=== PATIENT | female | born 1965 | race Caucasian/White ===

== ENCOUNTER 2020-08-22 16:15 | Outpatient (CLI) | payer OTHER, SELFPAY ==
--- NOTE | ~2020-08-22 | MM_ITS ---
EXAMINATION: MM screening ed BI w omari HISTORY: Screening mammogram TECHNIQUE: Craniocaudal and mediolateral oblique 3-D tomosynthesis images were obtained and synthetic 2-D images were generated. CAD analysis was submitted and interpreted. COMPARISON: 06/28/2019, 05/12/2018, 04/23/2017, 04/10/2016, 03/15/2015, 12/12/2013 bilateral digital scre ening mammogram examinations BREAST PARENCHYMAL COMPOSITION: The breasts are heterogeneously dense, which may obscure small masses . FINDINGS: There is no evidence of suspicious mass, calcification, or architectural distortion to sugg est malignancy in either breast. There has been no suspicious interval change. IMPRESSION: 1. No mammographic evidence of malignancy. 2. Recommend routine screening mammography in one year. BI-RADS Category 1: Negative Reviewed, dictated and finalized at location A. ERIBS TRIMMER
== END 2020-08-22 16:16 | disposition home or self-care (01) ==
LOC: ANHIMG 16:18
PROVIDERS: PCP Family Medicine; Visit Provider Advanced Practice Midwife
DX: Z12.31 Encounter for screening mammogram for malignant neoplasm of breast (principal)
CPT/HCPCS: 77063; 77067

== ENCOUNTER → 2020-12-10 15:27 | Outpatient (CLI) | payer OTHER, SELFPAY ==
--- NOTE | ~2020-12-10 | US_ITS ---
EXAMINATION: US soft tissue UE RT DATE: 12/10/2020 15:46 INDICATION: Right upper limb lump. TECHNIQUE: Multiple grayscale and Doppler ultrasound images of the right upper limb were obtained. COMPARISON: None FINDINGS: There is no abnormal mass in the patient's area of concern anteromedial to the elbow. IMPRESSION: 1. No abnormal mass in the patient's area of concern anteromedial to the elbow. Reviewed, dictated and finalized at location A.
== END ==
PROVIDERS: PCP Family Medicine; Visit Provider Physician Assistant
DX: R22.30 Localized swelling, mass and lump, unspecified upper limb (principal)
CPT/HCPCS: 76882

== ENCOUNTER → 2021-06-24 15:34 | Outpatient (CLI) | payer OTHER, SELFPAY ==
--- NOTE | ~2021-06-24 | XR_ITS ---
EXAMINATION: XR hand LT min 3V DATE: 06/24/2021 15:51 INDICATION: Pain in unspecified hand. Pain at base of left thumb. TECHNIQUE: 3 views of left hand were obtained. COMPARISON: None. FINDINGS: Bone alignment is normal. No fracture. There is mild osteoarthritis of triscaphe joint and first carpometacarpal joint. There is mild osteoarthritis of most of the interphalangeal joints. Ther e is moderate osteoarthritis of fifth distal interphalangeal joint. IMPRESSION: 1. Polyarticular osteoarthritis. Reviewed, dictated and finalized at location B. WRAPPER
== END ==
PROVIDERS: PCP Physician Assistant; Visit Provider Physician Assistant
DX: M79.642 Pain in left hand (principal); M19.042 Primary osteoarthritis, left hand
CPT/HCPCS: 73130

== ENCOUNTER 2021-11-06 07:48 | Outpatient (CLI) | payer OTHER, SELFPAY ==
--- NOTE | ~2021-11-06 | DEXA_ITS ---
Bone Density Report Name: MARLON PEREZ Age: 56 Sex: Female Ethnicity: White Date of : 1965 Indication: postmenopausal; screening for osteoporosis; Referring Provider: WANDA MONTES DE OCA Study: Bone densitometry was performed. Exam Date: November 06, 2021 Accession number: [id number] Bone Density: Region BMD T-score Z-score Classification AP Spine(L1-L4) 1.072 0.2 1.2 Normal Femoral Neck (Left) 0.866 0.2 1.2 Normal Total Hip (Left) 0.987 0.4 1.0 Normal Femoral Neck (Right) 0.853 0.0 1.0 Normal Total Hip (Right) 1.016 0.6 1.2 Normal Total Hip Mean 1.002 0.5 1.1 Normal World Health Organization criteria for BMD impression classify patients as: Normal (T-score at or above -1.0), Osteopenia (T-score between -1.0 and -2.5), or Osteoporosis (T-score at or below -2.5). 10-year Fracture Risk: FRAX not reported because: All T-scores for Spine Total, Hip Total, Femoral Neck at or above -1.0 Clinical Information Provided by Patient: Patient maximum height was 67 Menopause Age: 56 Drinks caffeinated beverages Onset of menses at age 14 Number of children 1 Impression: The patient has normal bone mass. Discussion: BONE DENSITY IS ABOVE THE MINIMUM DESIRABLE LEVEL AT ALL SKELETAL SITES TESTED. This patient?s bone mineral density is above the minimum desirable level (T-score -1.0 or better) at all sites measured. The patient should follow a healthful lifestyle (good nutrition with adequate calcium and vitamin D, and appropriate weight-bearing exercise). Follow-Up: Consider repeating this study in 5 years or sooner if there is some new clinical indication. Reported by: WADE on 11/06/2021 8:42:00 AM. Reviewed, dictated and finalized at location AGaro GUAMAN
--- NOTE | ~2021-11-06 | MM_ITS ---
EXAMINATION: MM screening ed BI w omari HISTORY: Screening mammogram TECHNIQUE: Craniocaudal and mediolateral oblique 3-D tomosynthesis images were obtained and synthetic 2-D images were generated. CAD analysis was submitted and interpreted. COMPARISON: 08/22/2020, 06/28/2019, 05/12/2018, 04/23/2017 bilateral screening mammogram examinations 05/06/2017 diagnostic left mammogram BREAST PARENCHYMAL COMPOSITION: The breasts are heterogeneously dense, which may obscure small masses . FINDINGS: There is stable asymmetry in the upper outer left breast since 04/23/2017. No suspicious mass or interval architectural distortion, malignant calcification, skin thickening or retraction or significant new or developing density is detected. IMPRESSION: 1. Stable asymmetry, upper outer left breast, since 04/23/2017 2. Recommend routine screening mammography in one year. BI-RADS Category 2: Benign finding(s). Reviewed, dictated and finalized at location A.
== END 2021-11-06 07:49 | disposition home or self-care (01) ==
PROVIDERS: PCP Family Medicine; Visit Provider Obstetrics & Gynecology
DX: Z12.31 Encounter for screening mammogram for malignant neoplasm of breast (principal); Z78.0 Asymptomatic menopausal state
CPT/HCPCS: 77063; 77067; 77080

== ENCOUNTER 2022-05-01 11:58 | Emergency (ER) | payer OTHER, SELFPAY ==
[2022-05-01 12:14] VITALS: BP 121/73; PULSE 80; RESP 18; TEMP 36.5; O2SAT 100
--- NOTE | 2022-05-01 13:04 | ED.URI ---
HPI - URI/Sore Throat General Chief Complaint: Upper Respiratory Infection Stated Complaint: Congestion,Headache Time Seen by Provider: 05/01/22 13:04 Source: patient Mode of arrival: ambulatory Limitations: no limitations History of Present Illness HPI Narrative: 56-year-old female presents with complaint of nasal congestion for approximately 10 days. Today she states she woke up and congestion is worse with sore throat, postnasal drainage and left ear pain. Reports sinus pressure worse to left side. Afebrile. Complaining of fatigue. Concerned that she has a sinus infection. Has not been taking any wsya-fyy-butnoje medications to treat her symptoms. All systems reviewed and negative except as noted above. Related Data Home Medications Medication Instructions Recorded Confirmed hydrochlorothiazide 12.5 mg tablet 12.5 mg PO DAILY 05/01/22 05/01/22 Allergies Allergy/AdvReac Type Severity Reaction Status Date / Time ciprofloxacin [From Cipro] Allergy Severe Dizziness, Verified 05/01/22 12:32 nausea Review of Systems Review of Systems: CONSTITUTIONAL: Denies fever, chills, or sweats. Reports fatigue. EYES: Denies visual changes, redness, or discharge. ENT: Reports rhinorrhea, congestion, sore throat and left ear pain. CARDIOVASCULAR: Denies chest pain, palpitations, or edema. RESPIRATORY: Denies cough or dyspnea. GASTROINTESTINAL: Denies abdominal pain, nausea, vomiting, or diarrhea. GENITOURINARY: Denies dysuria or hematuria. SKIN: Denies rash or itching. MUSCULOSKELETAL: Denies back pain, joint pain, or myalgia. NEUROLOGIC: Denies headache, numbness, or weakness. PSYCHIATRIC: Denies anxiety or depression. All other systems reviewed are negative, except as documented in HPI. [facility]LY [facility] Past Medical History Medical History Generalized abdominal pain Goiter HLD (hyperlipidemia) HTN (hypertension) Hypothyroidism Pain of right hip joint SK (seborrheic keratosis) Surgical History Surgical History History of tonsillectomy (~1988) Hx of cholecystectomy (~1999) Family History Family History Mother Hypertension, Onset Age: 60 Family history of cardiovascular disease, Onset Age: 60 Mother of heart-related issues and apparently several other medical problems. Cerebrovascular accident, Onset Age: 60 Family history of type 1 diabetes mellitus Family history of thyroid disease Family history of diabetes mellitus in first degree relative Family history of congestive heart failure Father Family history of cardiovascular disease Father had a coronary stent in his 60s Cerebrovascular accident, Onset Age: 75 Family history of congestive heart failure Other Diabetes mellitus Social History Social History Social History: Patient is and lives in [place]. 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 Smoking status: Never smoker Second hand tobacco smoke exposure: No Alcohol intake: never Substance use: never Substance use type: does not use Gender identity (if verbalized by the patient): Female Comments At time of signature, agree with nursing past medical, surgical, social and family history. There is no relevant family history pertinent to the presenting complaint. Exam Narrative: GENERAL: This is a well-nourished, well-developed patient, in no apparent distress. HEAD: normocephalic, atraumatic. EYES: PERRL. Sclera clear/white. Vision is grossly intact. EARS: External ears normal, auditory canals clear and without drainage, Left TM is erythematous, fluid, bulging without perforation. Right TM is normal. NOSE: External nose normal with no obvious nasal discharge, nares without redness, no rhinorrhea. no sinus tenderness
== END 2022-05-01 13:12 | disposition home or self-care (01) ==
PROVIDERS: Emergency Provider Nurse Practitioner Family; PCP Family Medicine
DX: J01.90 Acute sinusitis, unspecified (principal); H65.02 Acute serous otitis media, left ear; E78.5 Hyperlipidemia, unspecified; I10 Essential (primary) hypertension; E03.9 Hypothyroidism, unspecified; E04.9 Nontoxic goiter, unspecified
CPT/HCPCS: 99213; G0463

== ENCOUNTER 2023-03-18 00:25 | Day surgery (SDC) | payer OTHER, SELFPAY ==
[2023-03-10 10:44] VITALS: BMI 27.6
--- NOTE | 2023-03-17 13:21 | PM.HPGS ---
History of Present Illness History of Present Illness Consent: Risks, benefits, and alternatives have been discussed and questions answered. Patient agrees to proceed with procedure. Chief complaint: neoplasm screening Narrative: Constanza Pate is a 57 year old female referred for colon cancer screening. She had a polyp removed about 5 years ago. Review of Systems Review of Systems: All systems reviewed & are unremarkable except as noted in HPI and below PMFSH Past Medical History Medical History Generalized abdominal pain Goiter HLD (hyperlipidemia) HTN (hypertension) Hypothyroidism Pain of right hip joint SK (seborrheic keratosis) Surgical History Surgical History History of tonsillectomy (~1988) Hx of cholecystectomy (~1999) Family History Family History Mother Hypertension, Onset Age: 60 Family history of cardiovascular disease, Onset Age: 60 Mother of heart-related issues and apparently several other medical problems. Cerebrovascular accident, Onset Age: 60 Family history of type 1 diabetes mellitus Family history of thyroid disease Family history of diabetes mellitus in first degree relative Family history of congestive heart failure Father Family history of cardiovascular disease Father had a coronary stent in his 60s Cerebrovascular accident, Onset Age: 75 Family history of congestive heart failure Other Diabetes mellitus Social History Social History Social History: Patient is and lives in [place]. 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 Smoking status: Never smoker Second hand tobacco smoke exposure: No Alcohol intake: never Substance use: never Substance use type: does not use Lack of Transportation: No Lack of Food: Never True Current Housing: I Have Housing Concerned About Future Housing: No Difficulty Paying Gas/Electric Bills: No Difficulty Paying for Meds: No Currently Unemployed: No Education: Bachelor's Degree Difficulty w/ Childcare or Family Care: No Living arrangements: with family Occupation/Education: occupation Gender identity (if verbalized by the patient): Female Spiritual care concerns: No Agree to blood products: Yes Meds Home Medications and Allergies Home Medications Medication Instructions Recorded Confirmed Type levothyroxine 125 mcg tablet 125 mcg PO DAILY #90 tabs 11/13/22 03/11/23 Rx hydrochlorothiazide 12.5 mg tablet 12.5 mg PO DAILY #90 tabs 12/11/22 03/11/23 Rx Allergies Allergy/AdvReac Type Severity Reaction Status Date / Time ciprofloxacin [From Cipro] Allergy Severe Dizziness, Verified 03/18/23 07:17 nausea Exam Const: General: alert Orientation/consciousness: patient oriented x3 Resp: Auscultation: clear to auscultation bilaterally Cardio: Rhythm: regular rhythm GI: GI Palp: Yes Soft to palpation and No Tenderness to palpation present (GI) Neuro: General: patient oriented x3 Assessment and Plan Assessment and plan (1) Colon cancer screening: Code(s): Z12.11 - Encounter for screening for malignant neoplasm of colon Status: Acute Assessment and Plan: Colonoscopy with possible biopsy or polypectomy or cautery or injection of substances.
[2023-03-18 07:18] VITALS: BP 111/71; PULSE 60; RESP 20; TEMP 36.3; O2SAT 99
[2023-03-18] MEDS: LACTATED RINGERS 1,000 ML 150 ML IV CONT (07:32)
--- NOTE | 2023-03-18 08:03 | WPDANESEPPF ---
Anes - Initial Pre Proc Eval Procedure: Operation Date: 03/18/23 08:30 Proposed Procedures p Screening Colonoscopy - Gilberto Smith MD Date/Time: 03/18/23 08:03 Surgeon: Gilberto Smith MD Pre Op Diagnosis: neoplasm screening Patient Data Age: 57 Gender: F Height: 1.68 m Weight: 77.1 kg Last Vital Signs Temp 97.3 F L 03/18/23 07:18 Pulse 60 03/18/23 07:18 Resp 20 03/18/23 07:18 BP 111/71 03/18/23 07:18 Pulse Ox 99 03/18/23 07:18 O2 Del Method Room Air 03/18/23 07:18 Allergies Allergy/AdvReac Type Severity Reaction Status Date / Time ciprofloxacin [From Cipro] Allergy Severe Dizziness, Verified 03/18/23 07:17 nausea Home Medications Medication Instructions Recorded Confirmed Type levothyroxine 125 mcg tablet 125 mcg PO DAILY #90 tabs 11/13/22 03/11/23 Rx hydrochlorothiazide 12.5 mg tablet 12.5 mg PO DAILY #90 tabs 12/11/22 03/11/23 Rx Patient hx anesthesia problems: none Family hx anesthesia problems: none Results Review: All pre-operative results and documents have been reviewed as part of the pre-operative evaluation. COUNT INCLUDES THE [facility] Past Medical History Medical History Generalized abdominal pain Goiter HLD (hyperlipidemia) HTN (hypertension) Hypothyroidism Pain of right hip joint SK (seborrheic keratosis) Surgical History Surgical History History of tonsillectomy (~1988) Hx of cholecystectomy (~1999) Family History Family History Mother Hypertension, Onset Age: 60 Family history of cardiovascular disease, Onset Age: 60 Mother of heart-related issues and apparently several other medical problems. Cerebrovascular accident, Onset Age: 60 Family history of type 1 diabetes mellitus Family history of thyroid disease Family history of diabetes mellitus in first degree relative Family history of congestive heart failure Father Family history of cardiovascular disease Father had a coronary stent in his 60s Cerebrovascular accident, Onset Age: 75 Family history of congestive heart failure Other Diabetes mellitus Social History Social History Social History: Patient is and lives in [place]. 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 status: Never smoker Second hand tobacco smoke exposure: No Alcohol intake: never Substance use: never Substance use type: does not use Lack of Transportation: No Lack of Food: Never True Current Housing: I Have Housing Concerned About Future Housing: No Difficulty Paying Gas/Electric Bills: No Difficulty Paying for Meds: No Currently Unemployed: No Education: Bachelor's Degree Difficulty w/ Childcare or Family Care: No Living arrangements: with family Occupation/Education: occupation Gender identity (if verbalized by the patient): Female Spiritual care concerns: No Agree to blood products: Yes Anes - Eval Final PreProcedure Day of Procedure 03/18/23 08:03 Patient weight: normal Heart: regular rate and rhythm Lungs: clear to auscultation Airway: Mallampati scale class II Neurological: alert and oriented Last oral intake: >/= 8 hours ASA classification: II Emergent: no Anesthetic plan: proceed Anesthesia type and monitoring: general GIVS and standard monitoring Results Review: All pre-operative results and documents have been reviewed as part of the pre-operative evaluation. Informed Consent: The patient's anesthetic plan and its attendant risks and benefits were discussed with the patient/family/POA. Questions were solicited and answers provided to the satisfaction of the patient/family/POA.
[2023-03-18 08:38] VITALS: BP 105/63; PULSE 68; RESP 20; O2SAT 99
[2023-03-18 08:48] VITALS: BP 120/77; PULSE 60; RESP 20; O2SAT 100
[2023-03-18 08:54] VITALS: BP 122/80; PULSE 60; RESP 20; O2SAT 100
== END 2023-03-18 09:05 | disposition home or self-care (01) ==
PROVIDERS: PCP Family Medicine; Visit Provider Internal Medicine Gastroenterology
PROC: 0DJD8ZZ Inspection of Lower Intestinal Tract, Via Natural or Artificial Opening Endoscopic (ICD-10-PCS; CPT 45378; principal; 2023-03-18 08:30)
DX: Z12.11 Encounter for screening for malignant neoplasm of colon (principal); Z86.010 Personal history of colon polyps; I10 Essential (primary) hypertension; E03.9 Hypothyroidism, unspecified
CPT/HCPCS: 45378; J2704; J7120

== ENCOUNTER 2023-03-20 09:05 | Outpatient (CLI) | payer OTHER, SELFPAY ==
--- NOTE | ~2023-03-20 | MM_ITS ---
EXAMINATION: MM screening [facility] BI w omari HISTORY: Screening mammogram TECHNIQUE: Craniocaudal and mediolateral oblique 3-D tomosynthesis images were obtained and synthetic 2-D images were generated. CAD analysis was submitted and interpreted. COMPARISON: 11/06/2021, 08/22/2020, 06/28/2019 BREAST PARENCHYMAL COMPOSITION: The breasts are heterogeneously dense, which may obscure small masses . FINDINGS: No suspicious mass, calcification, or architectural distortion are identified in either aliya ast to suggest malignancy. There has been no suspicious interval change. IMPRESSION: 1. No mammographic evidence of malignancy. 2. Recommend routine screening mammography in one year. BI-RADS Category 1: Negative Reviewed, dictated and finalized at location A.
== END 2023-03-20 09:06 | disposition home or self-care (01) ==
PROVIDERS: PCP Family Medicine; Visit Provider Advanced Practice Midwife
DX: Z12.31 Encounter for screening mammogram for malignant neoplasm of breast (principal)
CPT/HCPCS: 77063; 77067

== ENCOUNTER → 2023-05-20 10:26 | Outpatient (CLI) | payer OTHER, SELFPAY ==
--- NOTE | ~2023-05-20 | XR_ITS ---
XR abdomen/kub 1V 05/20/2023 10:50 INDICATION: Unspecified abdominal pain TECHNIQUE: KUB COMPARISON: None FINDINGS: Bowel gas pattern is normal. There are cholecystectomy clips. There is no evidence of free air, mass, organomegaly, ascites or obstruction. No abnormal calculi are seen. The bones appear int act. Calcifications in the pelvis are believed to be phleboliths. IMPRESSION: 1: No acute abdominal abnormality identified. Reviewed, dictated and finalized at location B. NEL LIP WETTER
--- NOTE | ~2023-05-20 | XR_ITS ---
Lumbosacral Spine: AP and lateral views Clinical History: Pain Findings: The normal lordotic curve is maintained. The vertebral bodies and posterior elements are i ntact. The intervertebral disc spaces are preserved. There is mild facet arthropathy at L4-L5 and L5 -S1. The sacroiliac joints are normally outlined. Impression: Mild facet arthropathy at the lower lumbar spine, as detailed above. Reviewed, dictated and finalized at location . AG STITCHER Impression: Mild facet arthropathy at the lower lumbar spine, as detailed above.
== END ==
PROVIDERS: PCP Physician Assistant; Visit Provider Physician Assistant
DX: M47.816 Spondylosis without myelopathy or radiculopathy, lumbar region (principal)
CPT/HCPCS: 72100; 74018

== ENCOUNTER 2023-08-07 09:54 | Emergency (ER) | payer OTHER, SELFPAY ==
--- NOTE | 2023-08-07 10:04 | ED.URI ---
HPI - URI/Sore Throat General Chief Complaint: Upper Respiratory Infection Stated Complaint: Sore Throat Time Seen by Provider: 08/07/23 09:54 Source: patient Mode of arrival: ambulatory Limitations: no limitations History of Present Illness HPI Narrative: Patient is a 57-year-old female who presents with sore throat since Thursday. Reports mild postnasal drip. Denies any congestion, cough, fever, chills, nausea, vomiting, diarrhea. Has been taking Zicam, Tylenol and ibuprofen Related Data Allergies Allergy/AdvReac Type Severity Reaction Status Date / Time ciprofloxacin [From Cipro] AdvReac Intermediate Dizziness, Verified 08/07/23 10:04 nausea Review of Systems Review of Systems: All systems reviewed & are unremarkable except as noted in HPI and below Constitutional: Constitutional: Denies body ache(s), Denies chills, Denies fatigue, Denies fever(s), Denies headache(s), Denies malaise and Denies weakness Eyes: Eyes: Denies blurry vision, Denies itchy eyes and Denies loss of vision ENT: Denies otalgia, Denies headache(s), Denies nasal congestion, Denies sinus pain and Reports sore throat Cardiovascular: Cardiovascular: Denies chest pain, Denies irregular heart rhythm and Denies dyspnea Respiratory: Respiratory: Denies cough and Denies dyspnea Gastrointestinal: Gastrointestinal: Denies abdominal pain, Denies diarrhea, Denies nausea and Denies vomiting Musculoskeletal: Musculoskeletal: Denies back pain, Denies myalgias and Denies arthralgias Integumentary/Breasts: Skin/Breast: Denies pruritus and Denies rash Neurologic: Denies headache(s), Denies loss of vision and Denies weakness Psychiatric: Psychiatric: Reports no additional psychiatric complaints Endocrine: Endocrine: Denies fatigue Allergic/Immunologic: Allergic/Immunologic: Denies itchy eyes PMFSH Past Medical History Medical History Generalized abdominal pain Goiter HLD (hyperlipidemia) HTN (hypertension) Hypothyroidism Pain of right hip joint SK (seborrheic keratosis) Surgical History Surgical History History of tonsillectomy (~1988) Hx of cholecystectomy (~1999) Family History Family History Mother Hypertension, Onset Age: 60 Family history of cardiovascular disease, Onset Age: 60 Mother of heart-related issues and apparently several other medical problems. Cerebrovascular accident, Onset Age: 60 Family history of type 1 diabetes mellitus Family history of thyroid disease Family history of diabetes mellitus in first degree relative Family history of congestive heart failure Father Family history of cardiovascular disease Father had a coronary stent in his 60s Cerebrovascular accident, Onset Age: 75 Family history of congestive heart failure Other Diabetes mellitus Social History Social History Social History: Patient is and lives in [place]. 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 Smoking status: Never smoker Second hand tobacco smoke exposure: No Alcohol intake: never Substance use: never Substance use type: does not use Lack of Transportation: No Lack of Food: Never True Current Housing: I Have Housing Concerned About Future Housing: No Difficulty Paying Gas/Electric Bills: No Difficulty Paying for Meds: No Currently Unemployed: No Education: Bachelor's Degree Difficulty w/ Childcare or Family Care: No Living arrangements: with family Occupation/Education: occupation Gender identity (if verbalized by the patient): Female Spiritual care concerns: No Agree to blood products: Yes Comments At time of signature, agree with nursing past medical, surgical, social and family history. There is no relevant family history pe
[2023-08-07 10:18] VITALS: BP 115/81; PULSE 85; RESP 16; TEMP 36.7; O2SAT 99
== END 2023-08-07 10:26 | disposition home or self-care (01) ==
PROVIDERS: Emergency Provider Nurse Practitioner Family; PCP Physician Assistant
DX: J02.0 Streptococcal pharyngitis (principal); E04.9 Nontoxic goiter, unspecified; E78.5 Hyperlipidemia, unspecified; I10 Essential (primary) hypertension; E03.9 Hypothyroidism, unspecified
CPT/HCPCS: 87880; 99213; G0463

== ENCOUNTER 2023-11-22 00:21 | Emergency (ER) | payer OTHER, SELFPAY ==
[2023-11-22] VITALS (7 sets, daily range): BP systolic 126–154; BP diastolic 71–91; PULSE 71–77; RESP 14–19; TEMP 36.8; O2SAT 96–100
--- NOTE | ~2023-11-22 | XR_ITS ---
EXAMINATION: XR chest 1V portable 11/22/2023 00:45 INDICATION: Left-sided chest pain PROCEDURE: AP portable chest COMPARISON: Comparison to multiple prior studies sequentially, with oldest reviewed study dated 10/06. FINDINGS: The lungs are clear. The cardiomediastinal silhouette is within normal limits. There are no pleural effusions. There is no pneumothorax suspected. IMPRESSION: 1: NO ACUTE CARDIOPULMONARY DISEASE. Reviewed, dictated and finalized at location B.
--- NOTE | 2023-11-22 00:22 | ECG_ITS ---
[facility] [address] Test Date: 2023-11-22 Pat Name: Constanza Pate Department: Room: Gender: F Commercial Installer: : 1965 Requested By: Scarlett Wallace Order Number: [id number] Dustin MD: Servando Pagan M.D. Measurements Intervals [place] Rate: 67 P: 59 UT: 173 QRS: 39 QRSD: 96 T: 48 QT: 377 QTc: 399 Interpretive Statements SINUS RHYTHM NORMAL ELECTROCARDIOGRAM No previous ECG available for comparison Electronically Signed On 11-22-2023 07:52:36 CDT by Servando Pagan M.D.
[2023-11-22] MEDS: ASPIRIN 81 MG CHEWABLE TABLET 324 MG PO (00:45)
[2023-11-22 00:48] LABS: Basophils Absolute Auto 0.1 K/mm3 (0.0-0.1); Basophils Percent Auto 1.3 % (0.2-1.2); Eosinophils Absolute Auto 0.1 K/mm3 (0-0.3); Eosinophils Percent Auto 2.5 % (0-4.4); Hematocrit 35.7 % (37.0-47.0); Hemoglobin 12.4 g/dL (12.0-15.0); Immature Granulocyte Absolute 0.01 K/mm3 (0.00-0.031); Immature Granulocyte Percent A 0.2 % (0-0.5); Lymphocytes Absolute Auto 1.76 K/mm3 (0.9-3.2); Lymphocytes Percent Auto 37.2 % (18.3-44.2); Mean Corpuscular HGB Conc 34.7 g/dl (32-36); Mean Corpuscular Hemoglobin 31.3 pg (26-34); Mean Corpuscular Volume 90.2 fl (80-100); Mean Platelet Volume 9.8 fl (7.4-10.4); Monocytes Absolute Auto 0.6 K/mm3 (0.1-0.6); Monocytes Percent Auto 12.1 % (2.6-8.5); Neutrophils Absolute Auto 2.2 K/mm3 (1.3-6.7); Neutrophils Percent Auto 46.7 % (45.5-73.1); Platelet Count Result 233 k/mm3 (150-375); Red Blood Count 3.96 M/mm3 (4.2-5.4); Red Cell Distribution Width 12.9 % (11.5-14.5); White Blood Count 4.7 K/mm3 (4.5-10.0)
[2023-11-22 00:54] LABS: Alanine Aminotransferase 17 U/L (6-35); Albumin Level 4.3 g/dL (3.5-5.1); Alkaline Phosphatase 60 U/L (38-126); Anion Gap 5 mmol/L (4-12); Aspartate Amino Transferase 25 U/L (14-36); Bilirubin,Total 0.5 mg/dL (0.2-1.3); Blood Urea Nitrogen 20 mg/dL (7-17); Calcium 9.3 mg/dL (8.4-10.2); Carbon Dioxide 27 mmol/L (22-30); Chloride 105 mmol/L (98-107); Estimated CRCL calculation 52 ml/min; Estimated Glomerular Filt Rate 57; Glucose 91 mg/dL (65-110); INR 0.9; Lipase 255 U/L (23-300); Partial Thromboplastin Time 24.8 Seconds (22.3-36.8); Potassium 3.9 mmol/L (3.4-5.0); Sodium 137 mmol/L (137-145)
[2023-11-22 01:05] LABS: Troponin I < 0.012 ng/mL (0.000-0.034)
--- NOTE | 2023-11-22 02:08 | ED.CHESTPAIN ---
HPI - Chest Pain General Chief Complaint: Chest Pain Stated Complaint: Chest pain Time Seen by Provider: 11/22/23 00:56 History of Present Illness HPI narrative: all for today patient started having a sensation possible pressure versus twinges to her left chest, occurred at rest, does not radiate, no nausea vomiting, no diaphoresis, no shortness of breath or recent cough, no lower extremity pain or swelling, no personal history of cardiac Disease, does not smoke, does only have a history of hypertension on hydrochlorothiazide, and thyroid disease. Recently had an episode presyncope and has a stress test ordered by her primary care doctor. pain is very minor and intermittent. no recent trauma or heavy lifting Related Data Allergies Allergy/AdvReac Type Severity Reaction Status Date / Time ciprofloxacin [From Cipro] AdvReac Intermediate Dizziness, Verified 11/22/23 00:28 nausea Review of Systems Review of Systems: All systems reviewed & are unremarkable except as noted in HPI and below PMFSH Past Medical History Medical History Generalized abdominal pain Goiter HLD (hyperlipidemia) HTN (hypertension) Hypothyroidism Pain of right hip joint SK (seborrheic keratosis) Surgical History Surgical History History of tonsillectomy (~1988) Hx of cholecystectomy (~1999) Family History Family History Mother Hypertension, Onset Age: 60 Family history of cardiovascular disease, Onset Age: 60 Mother of heart-related issues and apparently several other medical problems. Cerebrovascular accident, Onset Age: 60 Family history of type 1 diabetes mellitus Family history of thyroid disease Family history of diabetes mellitus in first degree relative Family history of congestive heart failure Father Family history of cardiovascular disease Father had a coronary stent in his 60s Cerebrovascular accident, Onset Age: 75 Family history of congestive heart failure Other Diabetes mellitus Social History Social History Social History: Patient is and lives in [place]. 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 Smoking status: Never smoker Second hand tobacco smoke exposure: No Alcohol intake: never Substance use: never Substance use type: does not use Lack of Transportation: No Lack of Food: Never True Current Housing: I Have Housing Concerned About Future Housing: No Difficulty Paying Gas/Electric Bills: No Difficulty Paying for Meds: No Currently Unemployed: No Education: Bachelor's Degree Difficulty w/ Childcare or Family Care: No Living arrangements: with family Occupation/Education: occupation Gender identity (if verbalized by the patient): Female Spiritual care concerns: No Agree to blood products: Yes Exam Narrative: EXAMINATION OF ORGAN SYSTEMS/BODY AREAS: Constitutional: Vital signs per nursing GENERAL:[No acute distress, non-toxic appearing.] HEAD: Normal with no signs of head trauma. EYES: EOMI, conjunctiva normal ENT: Hearing grossly intact LUNGS: Nonlabored breathing, clear to auscultation bilaterally. HEART: [Regular rate and rhythm], normal radial and DP pulses ABD: [Soft], [nontender to palpation] EXT: Normal range of motion SKIN: [No rashes or lesions.] NEURO: [Alert and oriented x 3. No gross focal sensory or strength deficits.] PSYCH: Normal affect Course Vital Signs Vital signs: Vital Signs Temperature 98.2 F 11/22/23 00:25 Pulse Rate 75 11/22/23 00:25 Respiratory Rate 19 11/22/23 00:25 Blood Pressure 154/89 H 11/22/23 00:25 Pulse Oximetry 100 11/22/23 00:25 Oxygen Delivery Room Air 11/22/23 00:25 Temperature 98.2 F 11/22/23 00:25 Pulse Rate 73 11/22/23
--- NOTE | 2023-11-22 03:08 | ECG_ITS ---
[facility] [address] Test Date: 2023-11-22 Pat Name: Constanza Pate Department: Room: Gender: F [employer]: : [id number] Requested By: Scarlett Wallace Order Number: [id number] Dustin MD: Servando Pagan M.D. Measurements Intervals [place] Rate: 59 P: 50 [place]: 166 QRS: 34 QRSD: 98 T: 47 QT: 400 QTc: 398 Interpretive Statements SINUS BRADYCARDIA OTHERWISE NORMAL ECG Compared to ECG 11/22/2023 00:32:08 HEART RATE REDUCED, NO OTHER DIFFERENCE Electronically Signed On 11-22-2023 07:54:08 CDT by Servando Pagan M.D.
[2023-11-22 03:44] LABS: Troponin I < 0.012 ng/mL (0.000-0.034)
== END 2023-11-22 04:19 | disposition home or self-care (01) ==
PROVIDERS: Emergency Provider Emergency Medicine; PCP Family Medicine
DX: R07.9 Chest pain, unspecified (principal); E78.5 Hyperlipidemia, unspecified; I10 Essential (primary) hypertension; E03.9 Hypothyroidism, unspecified
CPT/HCPCS: 36415; 71045; 80053; 83690; 84484; 85025; 85610; 85730; 93005; 99284; A9270

== ENCOUNTER 2024-03-28 08:26 | Outpatient (CLI) | payer OTHER, SELFPAY ==
--- NOTE | ~2024-03-28 | MM_ITS ---
EXAMINATION: MM screening ed BI w omari HISTORY: Screening TECHNIQUE: Craniocaudal and mediolateral oblique 3-D tomosynthesis images were obtained and synthetic 2-D images were generated. CAD analysis was submitted and interpreted. COMPARISON: Comparison to multiple prior studies sequentially, with oldest reviewed study dated 04/16. BREAST PARENCHYMAL COMPOSITION: Dense: The breasts are heterogeneously dense, which may obscure small masses FINDINGS: There is no evidence of suspicious mass, calcification, or architectural distortion to sugg est malignancy in either breast. There has been no suspicious interval change. IMPRESSION: 1. No mammographic evidence of malignancy. 2. Recommend routine screening mammography in one year. BI-RADS Category 1: Negative Reviewed, dictated and finalized at location B.
== END 2024-03-28 08:27 | disposition home or self-care (01) ==
LOC: ANHIMG 08:28
PROVIDERS: PCP Family Medicine; Visit Provider Student in an Organized Health Care Education/Training Program
DX: Z12.31 Encounter for screening mammogram for malignant neoplasm of breast (principal)
CPT/HCPCS: 77063; 77067

== ENCOUNTER 2025-03-07 09:11 | Outpatient (CLI) | payer OTHER, SELFPAY ==
--- NOTE | ~2025-03-07 | XR_ITS ---
EXAMINATION: XR chest 2V, 03/07/2025 9:20 CDT HISTORY: R06.00 - Dyspnea, unspecified, SOB X 3 WEEKS COMPARISON: No comparisons available. Technique: 2 views obtained. Findings: The lungs are clear, no effusion. No pneumothorax. Heart is normal size. Mediastinal and hilar contours are within normal limits. Bony thorax no acute abnormality. Impression: No acute cardiopulmonary abnormality. Reviewed, dictated and finalized at location A. Impression: No acute cardiopulmonary abnormality.
== END 2025-03-07 09:12 | disposition home or self-care (01) ==
PROVIDERS: PCP Family Medicine; Visit Provider Student in an Organized Health Care Education/Training Program
DX: R06.00 Dyspnea, unspecified (principal)
CPT/HCPCS: 71046